=== PATIENT | female | born 1960 | race Caucasian/White ===

== ENCOUNTER → 2016-10-26 | Outpatient (CLI) | payer OTHER ==
[2016-10-26 18:19] LABS: BLOOD UREA NITROGEN 21 mg/dl (7-18); BUN/CREATININE RATIO 21.6 (10-20); CALCIUM 9.2 mg/dl (8.5-10.1); CARBON DIOXIDE 27 mmol/L (21-32); CHLORIDE 103 mmol/L (98-107); CREATININE 0.95 mg/dl (0.60-1.20); GLUCOSE 92 mg/dl (70-99); POTASSIUM 4.2 mmol/L (3.5-5.1); SODIUM 136 mmol/L (136-145)
== END | disposition home or self-care (01) ==
LOC: C.LABPBG 15:04
PROVIDERS: ATTEND Family Medicine
DX: I10 Essential (primary) hypertension (principal); Z11.59 Encounter for screening for other viral diseases

== ENCOUNTER → 2017-09-27 | Outpatient (CLI) | payer OTHER ==
[~2017-09-27] MED LIST: GADAVIST IV PRN
--- NOTE | 2017-09-27 11:37 | DIAGNOSTIC IMAGING REPORT ---
MR ANGIOGRAM OF THE NECK COMBO CLINICAL HISTORY: Arteriosclerotic vascular disease. Headaches and dizziness. COMPARISON STUDY: No priors. TECHNIQUE: Axial 3-D [id number] MR angiography of the neck is performed. Subsequently, following the IV administration of 8 cc of Gadavist. Coronal MR angiogram of the neck was performed to corroborate the findings. 3-D reformats are created and assessed. All measurements were calculated based on NASCET criteria. FINDINGS: Visualized portions of the thoracic aorta are normal in caliber. The aortic arch demonstrates standard 3-vessel anatomy. The subclavian arteries are widely patent bilaterally. The right common carotid artery is widely patent. There is atherosclerotic irregularity in the carotid bulb. The right internal carotid artery is widely patent. Mild stenosis is suggested the origin of the right external carotid artery. The left common carotid artery is widely patent. There is atherosclerotic irregularity seen in the region of the carotid bulb. There is approximate 75% stenosis at the origin of the left internal carotid artery. The remainder of the left internal carotid artery is widely patent. High-grade stenosis is also suggested the origin of the left external carotid artery. The vertebral arteries are widely patent. The vertebral arteries are codominant. The visualized intracranial vessels at the skull base appear patent. IMPRESSION: 1. There is approximately 75% stenosis identified at the origin of the left internal carotid artery. 2. The remainder of the left internal carotid artery is widely patent. 3. There is no significant stenosis identified in the right internal carotid artery. 4. The vertebral arteries are patent. 5. Stenosis is suggested the origin of both the right and left external carotid arteries. Electronically signed by: Fermin Anderson M.D. 09/27/2017 11:35 AM Dictated Date/Time: 09/27/2017 11:24 AM
== END | disposition home or self-care (01) ==
LOC: C.MRI 09:46
PROVIDERS: ATTEND Psychiatry & Neurology Neurology
DX: I65.29 Occlusion and stenosis of unspecified carotid artery (principal); I70.90 Unspecified atherosclerosis

== ENCOUNTER 2017-11-17 05:10 | Inpatient (IN) | payer OTHER ==
[2017-11-01 11:09] VITALS: BMI 32.0
--- NOTE | 2017-11-01 11:43 | PAT Medication Instructions ---
Service Date Nov 01, 2017. Current Home Medication List Aspirin (Aspirin Ec), 81 MG PO QDD Atenolol (Tenormin), 100 MG PO QAM Atorvastatin (Lipitor), 10 MG PO QAM Diazepam (Valium), 2 MG PO UD PRN for prn Flurbiprofen (Flurbiprofen), 2 TABS PO for Pain Hydrocodon/Acetaminophen 5MG/300MG (Vicodin (5MG/300MG)), 1 TAB PO Q4H PRN for Pain Triamterene/Hctz (Triamterene/Hydrochloroth), Unknown Dose PO QAM Medication Instructions For Your Scheduled Surgery -Check with your sugeon for instructions for: Aspirin (Aspirin Ec), 81 MG PO QDD Flurbiprofen (Flurbiprofen), 2 TABS PO for Pain - Hold the following medications the morning of surgery: Triamterene/Hctz (Triamterene/Hydrochloroth), Unknown Dose PO QAM - Take the following medications the morning of surgery with a sip of water: Atenolol (Tenormin), 100 MG PO QAM Atorvastatin (Lipitor), 10 MG PO QAM Diazepam (Valium), 2 MG PO UD PRN for prn (if needed) Hydrocodon/Acetaminophen 5MG/300MG (Vicodin (5MG/300MG)), 1 TAB PO Q4H PRN for Pain (if needed, can be taken up to four hours before surgery) - Take the following medications as scheduled the night before surgery: Diazepam (Valium), 2 MG PO UD PRN for prn (if needed) Hydrocodon/Acetaminophen 5MG/300MG (Vicodin (5MG/300MG)), 1 TAB PO Q4H PRN for Pain (if needed) If you have any questions please call us at [phone] or [phone] or [phone]
[2017-11-01 12:52] LABS: INR 0.9 (0.9-1.1); PTT PATIENT 26.4 SECONDS (21.0-31.0)
[2017-11-01 12:53] LABS: BASO % 0.4 %; BASO ABS # 0.04 K/uL (0-0.2); EOS % 1.5 %; EOS ABS # 0.15 K/uL (0-0.5); HEMATOCRIT 40.1 % (37-47); HEMOGLOBIN 14.2 g/dL (12.0-16.0); IG# 0.03 K/uL (0.00-0.02); LYMPH % 14.4 %; LYMPH ABS # 1.43 K/uL (1.2-3.4); MEAN CORPUSCULAR HEMOGLOBIN 33.6 pg (25-34); MEAN CORPUSCULAR HGB CONC 35.4 g/dl (32-36); MEAN PLATELET VOLUME 9.5 fL (7.4-10.4); MONO % 4.3 %; MONO ABS # 0.43 K/uL (0.11-0.59); NEUT % 79.1 %; NEUT ABS # 7.85 K/uL (1.4-6.5); PLATELET COUNT 184 K/uL (130-400); RED CELL DISTRIBUTION WIDTH CV 12.6 % (11.5-14.5); RED CELL DISTRIBUTION WIDTH SD 43.7 fL (36.4-46.3); WHITE BLOOD COUNT 9.93 K/uL (4.8-10.8)
[2017-11-01 13:51] LABS: CALCIUM 9.6 mg/dl (8.5-10.1); CREATININE 0.94 mg/dl (0.60-1.20)
[~2017-11-17] VITALS: Ht 154.9 cm; Wt 77.1 kg
[~2017-11-17 05:10] MED LIST changes: +ASPI81TA28 PO; +ATEN-175 PO; +ATOR10TA82 PO; +DIAZ2TAB PO; +FLUR50TA PO; -GADAVIST IV PRN; +HYDR-3419 PO; +MXZ/ PO
[2017-11-17 05:47] VITALS: BP 146/90; PULSE 73; TEMP 36.5; O2SAT 97; Ht 154.9 cm; Wt 77.1 kg
--- NOTE | 2017-11-17 05:55 | History and Physical ---
History & Physical Date of Service November 17, 2017. History & Physical CC: Left internal carotid artery stenosis HPI: Ms. Meron Bustamante is a 57-year-old female with past medical history significant for lupus and hypertension and tinnitus, who [facility]. She was being worked up for her tinnitus, but she states it is like locus humming in her left ear continuously when she underwent an MRA of her head, which showed a small microvascular changes. She also then was referred for a carotid duplex, which demonstrated a 70% stenosis and then was sent for an MRA of the neck, which showed a 75-80% stenosis of her left carotid artery. She was then referred to [facility] for further evaluation. Upon evaluation, she states that she has been having issues with the tinnitus for a year, but it has gotten significantly worse. She states that it happens night and day, other times when it is more intense and during those times, she has some associated dizziness. She denies any alleviating factors. She denies any aggravating factors. She does state that she has some weakness in her left extremities and she has significant arthritis bilaterally. She denies any episodes where she was unable to move her arm or legs. She denies any slurred speech, facial droop, or amaurosis. She denies any claudication, rest pain or tissue loss. She does have a ruptured disk in her back and will get neuropathic pain down her left leg with exertion. She says this starts in her low back and hip and radiates down to her toes and is tingling and sharp in nature. She is a smoker and smokes a pack a day. She has been smoking since she was 17 years old. PAST MEDICAL HISTORY: Significant for hypertension, lupus, general anxiety disorder, arthritis, degenerative joint disease, and carpal tunnel. PAST SURGICAL HISTORY: Significant for 2 C-sections and appendectomy. FAMILY HISTORY: Significant for coronary artery disease in her father and multiple siblings. Her father also had stroke. SOCIAL HISTORY: Smokes a pack a day since age 17. Social drinker. Denies any illicit substances. 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 ALLERGIES: ISABELA INHIBITORS, ERYTHROMYCIN, NIFEDIPINE. CURRENT HOME MEDICATIONS: 1. Flurbiprofen 100 mg b.i.d. p.r.n. 2. Percocet 5/325 take 1-2 tablets by mouth q.4-6 hours p.r.n. pain. 3. Diazepam 2 mg take 1 tablet t.i.d. p.r.n. anxiety. 4. Venlafaxine ER 150 mg [place] daily. 5. Atenolol 100 mg [place] daily. 6. Triamterene HCTZ 75/50 mg take 1 tablet daily. 7. Methylprednisone 4 mg daily. PHYSICAL EXAM: Heart rate is 64, blood pressure is 144/82 on the right, 144/82 on the left side, sating 97% on room air. Weight is 79.2 kg. This is a 57-year-old female in no acute distress. Head is normocephalic, atraumatic. Extraocular movements are intact. Neck is supple. Trachea is midline. Heart is regular. She has nonlabored breathing. Her abdomen is soft , nontender. She has a healed Pfannenstiel incision. No hernia. She has palpable bilateral radial, femoral, and DP pulses. She has no ulcers. Her strength is 4/5 in the left, 5/5 in the right. Hand jump roll operator was limited due to arthritis. Sensation is grossly intact bilaterally. Tongue is midline. Cranial nerves 2-12 are grossly intact. She underwent an MRA, which showed high-grade stenosis of the left carotid artery. Imp: Severe left internal carotid artery stenosis Plan: Patient is admitted for a left CEA. I have discussed the risks options and benefits of the procedure with the patient. The patient understands the risks options and benefits and agrees to the procedure.
[2017-11-17] MEDS ORDERED: CEFAZOLIN 1000MG IV PUSH 7.5 ML IV SCH (06:00)
[2017-11-17] MEDS ORDERED: LACTATED RINGER'S 1000ML 1,000 ML IV SCH ×2 (06:00)
[2017-11-17 06:44] LABS: CALCIUM 9.5 mg/dl (8.5-10.1); CREATININE 1.29 mg/dl (0.60-1.20); POTASSIUM 3.2 mmol/L (3.5-5.1)
[2017-11-17] MEDS ORDERED: DEXAMETHASONE SOD INJ 4 MG/ML VIAL ONE (06:47)
[2017-11-17] MEDS ORDERED: NEOSTIGMINE METHYLSULFATE 5 MG/5 ML SYR ONE (06:47)
[2017-11-17] MEDS ORDERED: ONDANSETRON INJ 2 MG/ML 2 ML VIAL ONE (06:47)
[2017-11-17] MEDS ORDERED: PROPOFOL IV EMULSION 10 MG/ML 20 ML VIAL ONE (06:47)
[2017-11-17] MEDS ORDERED: LIDOCAINE HCL 2% 2 ML VIAL (20MG/ML) ONE (06:47)
[2017-11-17] MEDS ORDERED: MIDAZOLAM HCL 1 MG/ML 2ML VIAL ONE (06:47)
[2017-11-17] MEDS ORDERED: GLYCOPYRROLATE INJ 0.2 MG/ML VIAL ONE (06:47)
[2017-11-17] MEDS ORDERED: FENTANYL CITRATE INJ 50 MCG/1 ML 2 ML VIAL ONE ×2 (06:48→10:36)
[2017-11-17] MEDS ORDERED: GELATIN SPONGE SZ 100 ONE (06:56)
[2017-11-17] MEDS ORDERED: CEFAZOLIN SOD 1 GM VIAL ONE (06:56)
[2017-11-17] MEDS ORDERED: BUPIVACAINE/EPINEPHRINE 0.5% MPF 1:200,000 30 ML VIAL ONE (06:56)
[2017-11-17] MEDS ORDERED: LIDOCAINE HCL 1% 20 ML VIAL ONE (06:56)
[2017-11-17] MEDS ORDERED: THROMBIN FOR SOLN 20000 UNIT KIT ONE (06:56)
[2017-11-17] MEDS ORDERED: HEPARIN SOD (PORCINE) 1000 UNIT/ML 10 ML VIAL ONE ×2 (06:57→08:30)
--- NOTE | 2017-11-17 07:04 | History & Physical Bridge Note ---
H&P Re-Evaluation Bridge Note: I have examined the patient, reviewed the History & Physical and in the interval since the performance of the History & Physical I have noted the following changes of clinical significance: No changes noted
[2017-11-17] MEDS ORDERED: PHENYLEPHRINE HCL INJ 10 MG/ML VIAL ONE (08:09)
[2017-11-17] MEDS ORDERED: ALBUTEROL HFA INHALER 8.5 GM INH ONE (08:09)
[2017-11-17] MEDS ORDERED: LARYING-O-JET KIT (LTA) ONE (08:09)
[2017-11-17] MEDS ORDERED: EpHEDrine SULFATE 50MG/5ML SYR ONE (08:09)
--- NOTE | 2017-11-17 09:31 | [facility] Post Operative Brief Note ---
Immediate Operative Summary Operative Date November 17, 2017. Pre-Operative Diagnosis Severe Left Internal Carotid Artery Stenosis Post-Operative Diagnosis Severe Left Internal Carotid Artery Stenosis Procedure(s) Performed Left Internal Carotid Endarterectomy with Patch Surgeon Dr. Miguel Cronin Production Control Manager Surgeon(s) Angie Garza PA-c and Dr. Charlotte Harkins(Fellow) Estimated Blood Loss 125 ml Findings Consistent with Post-Op Diagnosis Specimens A: Left internal Cartoid Plaque Drains None Anesthesia Type General Complication(s) none Disposition Disposition: Recovery Room / PACU
[2017-11-17] MEDS ORDERED: MoRPHine SULFATE 4 MG/ML 1 ML CARP\\VIAL IV PRN (09:45)
[2017-11-17] MEDS ORDERED: EpHEDrine SULFATE INJ 50 MG/ML AMP IV PRN (09:45)
[2017-11-17] MEDS ORDERED: ONDANSETRON INJ 2 MG/ML 2 ML VIAL IV PRN ×2 (09:45)
[2017-11-17] MEDS ORDERED: FENTANYL CITRATE INJ 50 MCG/1 ML 2 ML VIAL IV PRN (09:45)
[2017-11-17] MEDS ORDERED: HYDROmorphone INJ 2 MG/ML SYR/VIAL IV PRN (09:45)
[2017-11-17] MEDS ORDERED: ATROPINE SULFATE 0.1 MG/ML 5ML SYR IV PRN (09:45)
[2017-11-17] MEDS ORDERED: NITROGLYCERIN 5 MG/ML 10 ML VIAL ONE (10:28)
[2017-11-17] MEDS ORDERED: NURSING VERBAL MED ORDER ONE ×3 (10:45→16:00)
--- NOTE | 2017-11-17 11:27 | Anesthesiology Progress Note ---
Anesthesia Post Op Note Date & Time November 17, 2017 at 11:27 Vital Signs Pain Intensity: 2 Vital Signs Past 12 Hours Date Time Temp Pulse Resp B/P (MAP) Pulse Ox O2 Delivery O2 Flow Rate FiO2 11/17/17 11:15 50 16 100/69 (84) 96 Nasal Cannula 2 11/17/17 11:05 36.3 57 12 103/70 97 Nasal Cannula 2 Arterial Line 11/17/17 10:55 50 12 111/65 98 Nasal Cannula 2 105/47 (71) 11/17/17 10:45 52 16 113/72 97 Nasal Cannula 2 111/52 11/17/17 10:35 52 14 116/71 99 Oxymask 10 11/17/17 10:25 54 17 120/71 97 Oxymask 10 122/56 11/17/17 10:15 36.5 62 18 94/62 (70) 95 Oxymask 10 11/17/17 05:47 36.5 73 20 146/90 97 Room Air Notes Mental Status: alert / awake / arousable, participated in evaluation Pt Amnestic to Procedure: Yes Nausea / Vomiting: adequately controlled Pain: adequately controlled Airway Patency, RR, SpO2: stable & adequate BP & HR: stable & adequate Hydration State: stable & adequate Anesthetic Complications: no major complications apparent
[2017-11-17 11:50] VITALS: BP 100/68; PULSE 55; TEMP 36.5; O2SAT 92
--- NOTE | 2017-11-17 11:54 | OPERATIVE REPORT ---
DATE OF OPERATION: 11/17/2017 PREOPERATIVE DIAGNOSIS: Severe left internal carotid artery stenosis. POSTOPERATIVE DIAGNOSIS: Severe left internal carotid artery stenosis. PROCEDURE: Left carotid endarterectomy with patch angioplasty. SURGEON: Dr. Miguel Cronin ASSISTANTS: Dr. Charlotte Harkins and Angie Garza PA-C ESTIMATED BLOOD LOSS: 125 mL. FINDINGS: Consistent with postoperative diagnosis. ASSESSMENT: Left internal carotid plaque. DRAINS: None. ANESTHESIA: General anesthesia plus local. COMPLICATIONS: None. INDICATIONS: Mrs. Meron Bustamante is a 57-year-old woman with a history of hypertension, lupus, anxiety, arthritis, degenerative joint disease, carpal tunnel disease, who developed ringing in her ear. She was evaluated with an MRI which was significant for a 75-80% left carotid stenosis. She was asymptomatic with respect to her carotid disease. Given the significant degree of stenosis, she was recommended to undergo a left carotid endarterectomy. The risks, benefits, and alternatives were discussed with the patient and she consented to the procedure. DESCRIPTION OF PROCEDURE: The patient was taken to the operating room and placed in the supine position. Her left neck and chest were prepped and draped in the usual sterile fashion. A safety timeout was performed and the patient, procedure, and sidedness were correctly identified. An incision was made along the anterior border of the sternocleidomastoid muscle with a 10 blade scalpel. Bovie electrocautery was used to divide the subcutaneous tissues and the platysma. The sternocleidomastoid muscle was identified and retracted laterally. The carotid sheath was entered. The IJ was retracted laterally. The common carotid was identified and dissected circumferentially. We extended our dissection distally and identified the superior thyroid, external carotid, and internal carotid arteries. The hypoglossal was identified. The patient was systemically anticoagulated with 7000 units of intravenous heparin. After several minutes, the internal carotid, common carotid, and external carotid arteries were clamped sequentially. An arteriotomy was made in the common carotid with an 11 blade scalpel. This was extended proximally and distally with [place] scissors. A Doppler shunt was brought onto the field and placed into the internal carotid. This was backbled and then the remaining end was placed into the common carotid. The Doppler machine was turned on and appeared to have a good flow. We then proceeded with our endarterectomy. Following completion of the endarterectomy, the lumen was irrigated with heparinized saline and small bits of plaque were removed. A [place] Acuseal patch was then brought onto the field. This was sewn in place beginning at the internal carotid with a [place] CV6 suture in a running fashion. Prior to completion of the patch, the shunt was removed and all arteries were backbled, forward bled, and the lumen was flushed with heparinized saline. Upon completion of the patch, there were small areas of bleeding from needle holes. Thrombin Gelfoam was applied to overlying the patch and manual pressure was held for several minutes with good hemostasis. The platysma was reapproximated with 3-0 Vicryl in a running fashion. Skin was reapproximated with 4-0 Vicryl in a running subcuticular fashion. Local anesthesia was injected prior to closure. Dermabond skin glue was applied overlying the skin incision. The patient was awakened from general anesthesia and was following commands in all 4 extremities. She tolerated the procedure well and there were no immediate complications. She was transferred to the recovery area in stable condition. Dr. Miguel Cronin was present for the entire procedure. I attest to the content of the Intraoperative Record and any orders documented therein. Any exception s are noted below.
[2017-11-17] MEDS ORDERED: CEFAZOLIN IV 1,000 MG in SYRINGE 0 ML IV SCH (12:00)
[2017-11-17] MEDS ORDERED: EUCERIN CR 120 GM JAR EXT PRN (12:15)
[2017-11-17] MEDS ORDERED: ROCURONIUM BROMIDE 10 MG/ML 5 ML VIAL ONE (12:23)
[2017-11-17] MEDS: OXYCODONE/ACETAMINOPHEN 5-325 TAB PO PRN (15:04)
[2017-11-17 16:00] VITALS: BP 109/73; PULSE 56; TEMP 36.5; O2SAT 92
[2017-11-17] MEDS ORDERED: DIAZEPAM 2MG TAB PO PRN (16:00)
[2017-11-17] MEDS: ASPIRIN 81 MG ECTAB PO SCH (17:29)
[2017-11-17 19:20] VITALS: BP 105/66; PULSE 59; TEMP 36.4; O2SAT 91
[2017-11-17 23:14] VITALS: BP 120/72; PULSE 61; TEMP 36.6; O2SAT 91
[2017-11-17 23:59] VITALS: O2SAT 91
[2017-11-18] VITALS (9 sets, daily range): BP systolic 101–138; BP diastolic 66–82; PULSE 55–62; TEMP 36.4–36.8; O2SAT 92–97
[2017-11-18] MEDS: ATORVASTATIN 10 MG TAB PO SCH (07:39)
[2017-11-18] MEDS: ENOXAPARIN 30 MG/0.3 ML SYR SQ SCH ×2 (07:40→20:58)
[2017-11-18] MEDS: OXYCODONE/ACETAMINOPHEN 5-325 TAB PO PRN ×4 (07:42→23:54)
--- NOTE | 2017-11-18 08:21 | Progress Note ---
Progress Note Date of Service: November 18, 2017. Subjective Only complaint is with swallowing. She can swallow liquids. Solid food seems to stick in back of throat and is able to go down with liquids. Denies choking on food. Objective Vital Signs Vital Signs Past 12 Hours Date Time Temp Pulse Resp B/P (MAP) Pulse Ox O2 Delivery O2 Flow Rate FiO2 11/18/17 04:00 94 Room Air 11/18/17 03:38 36.5 62 18 138/82 (100) 95 Room Air 11/17/17 23:59 91 Room Air 11/17/17 23:14 36.6 61 17 120/72 (88) 91 Room Air Exam VSS Afebrile Awake and alert Incision dry and clean No neuro deficits appreciated. No facial droop Tongue midline Imp: Post left CEA Plan: Will consult speech therapy for a swallowing study. Probable d/c tomorrow.
[2017-11-18] MEDS: ASPIRIN 81 MG ECTAB PO SCH (16:16)
[2017-11-19 04:04] VITALS: BP 109/70; PULSE 63; TEMP 36.6; O2SAT 91
[2017-11-19 06:31] VITALS: BP 123/79; PULSE 57; TEMP 36.7; O2SAT 94
[2017-11-19] MEDS: ATORVASTATIN 10 MG TAB PO SCH (08:20)
[2017-11-19] MEDS: ENOXAPARIN 30 MG/0.3 ML SYR SQ SCH (08:20)
[2017-11-19 10:39] VITALS: BP 99/66; PULSE 55; TEMP 36.4; O2SAT 95
[2017-11-19] MEDS ORDERED: OXYC-57 PO (12:49)
--- NOTE | 2017-11-19 12:58 | Discharge Instructions ---
Discharge Instructions Date of Service November 19, 2017. Admission Reason for Admission: Left Carotid Stenosis Discharge Discharge Diagnosis / Problem: post Left carotid endarterectomy, Left carotid stenosis Discharge Goals Goal(s): Prevent Disease Progression Activity Recommendations Activity Limitations: per Instructions/Follow-up section . Instructions / Follow-Up Instructions / Follow-Up 1. May shower and cleanse surgical area gently, then dry thoroughly. DO NOT SOAK WOUND IN WATER. 2. No driving until pain ceases, approx 1-2 weeks. 3. Other activity as tolerated. 4. Will need an office appt with Dr Cronin or Angie Garza PA-C, in 2 weeks. Call [phone] for appt. Current Hospital Diet Patient's current hospital diet: AHA Diet (Heart Healthy) Discharge Diet Recommended Diet: AHA Diet (Heart Healthy) Procedures Procedures Performed: Left Internal Carotid Endarterectomy with Patch Pending Studies Studies pending at discharge: no Medical Emergencies . Who to Call and When: Medical Emergencies: If at any time you feel your situation is an emergency, please call 911 immediately. . Non-Emergent Contact Non-Emergency issues call your: Primary Care Provider, Surgeon . "Provider Documentation" section prepared by Angie Garza. . [place] Drug Monitoring Program Search Results: patient reviewed within database, no issues identified
--- NOTE | 2017-11-19 13:04 | Progress Note ---
Progress Note Date of Service: November 19, 2017. Subjective 57 yo f with multiple medical problems, POD #2 after L CEA, seen in f/u today. Pt states mild difficulty swallowing regular foods, never liquids, but that is improving. Was eval by speech therapy and d/t improvement in sx, recommended no further eval. Pt admits pain in L neck incision, but states controlled with medications. Objective Vital Signs Vital Signs Past 12 Hours Date Time Temp Pulse Resp B/P (MAP) Pulse Ox O2 Delivery O2 Flow Rate FiO2 11/19/17 12:00 Room Air 11/19/17 10:39 36.4 55 18 99/66 (77) 95 Room Air 11/19/17 08:00 Room Air 11/19/17 06:31 36.7 57 17 123/79 (94) 94 Room Air 11/19/17 04:04 36.6 63 18 109/70 (83) 91 Room Air 11/19/17 04:00 Room Air Exam CONST: A&O x3, NAD, generally healthy appearing female NECK: L neck with + tenderness, minimal edema. Incision C/D/I. CHEST: RRR lungs ctab ABD: soft, nontender, + bs x 4 quad EXT: ASIF NEURO: No focal deficits. ASSESSMENT and PLAN: s/p L CEA L ICAS Pt doing well post op. Ok for d/c home today. Will see in office in 2 weeks.
[2017-11-19 13:16] VITALS: BP 99/66; PULSE 55; TEMP 36.4; O2SAT 95
--- NOTE | 2017-11-19 23:53 | DISCHARGE SUMMARY ---
ADMISSION DIAGNOSIS: Severe left internal carotid artery stenosis. DISCHARGE DIAGNOSES: 1. Status post left internal carotid artery endarterectomy with patch. 2. Severe left internal carotid artery stenosis. DISCHARGE CONDITION: Stable. CONSULTATIONS IN THE HOSPITAL: Included none. PROCEDURES IN THE HOSPITAL: Included her left internal carotid artery endarterectomy with patch, which was performed on 10/18/2017 with an EBL of 125 mL and no significant complications. HISTORY OF PRESENT ILLNESS: Ms. Bustamante is a 57-year-old female who presented to Dr. Cronin's office for evaluation after she was hearing a humming in her left ear, which was evaluated by an ultrasound as well as an MRA of her neck, which had both demonstrated over 80% stenosis. The patient denies any other symptoms at that time including amaurosis, unilateral extremity weakness, numbness or tingling, difficulty speaking or swallowing, sudden onset confusion or other concerns. Due to the severity of her left internal carotid artery stenosis, she was recommended to consider undergoing a left carotid endarterectomy to reduce her risk of CVA. After discussion with Dr. Cronin regarding the procedure, risks, benefits, and alternatives, the patient was agreeable. HOSPITAL COURSE: The patient was admitted after undergoing left carotid endarterectomy with patch. This was performed without significant complications and as I said an EBL of 125 mL. She essentially remained stable, vital signs and labs. She did complain of a sore throat and some difficulty swallowing regular foods. She had no difficulty with liquids, soft foods, or any actual choking on food. She just stated that regular foods such as meat were difficult to get down. The patient was evaluated by speech therapy and found to have no significant deficits. Her symptoms improved on postop day 2 and she was felt to be stable enough for discharge at that time. PHYSICAL EXAMINATION: VITAL SIGNS: Are as follows: Temperature of 36.4, pulse of 55, respiratory rate of 18, blood pressure of 123/79 with a pulse oximetry of 95% on room air. CONSTITUTIONAL: The patient is a generally healthy for age appearing, well-nourished, well-developed middle aged female, in no acute distress. She ambulates without assistance and is active, alert and oriented x4 with normal recent and remote memory. HEAD: Normocephalic and atraumatic. EYES: EOMI. ENMT: Demonstrates no hearing loss, rhinorrhea, or pharyngeal erythema. NECK: Supple, nontender on the right. Her left neck surgical incision is tender with minimal edema. There is no ecchymosis noted. Her trachea is midline. HEART: Demonstrates a regular rate and rhythm. LUNGS: Decreased, but clear bilaterally. EXTREMITIES: Peripheral pulses are full and equal in all extremities unless otherwise noted, specifically they are normal in her carotid, brachial, radial, and femoral pulses. Lower extremity distal pulses are +1. She has brisk capillary refill and no sign of distal ischemia. ABDOMEN: Soft, nontender with normoactive bowel sounds in all 4 quadrants. No guarding or rebound. There is no flank or CVA tenderness. MUSCULOSKELETAL: Demonstrates normal tone and strength for age. NEUROLOGIC: The patient has grossly intact cranial nerves and grossly intact sensation. She has no focal neurological deficits at this time. DIET UPON DISCHARGE: Should be a low-cholesterol AHA diet. MEDICATIONS UPON DISCHARGE: Reconciled on the chart and are as per her discharge instructions. FOLLOWUP: Should be with Dr. Cronin or his PA, Angie Garza within 2 weeks for reevaluation. She was advised to call the office with any other questions or concerns.
== END 2017-11-19 14:23 | disposition home or self-care (01) | DRG 39 ==
LOC: C.ACU 05:10 → C.2T 06:00 → ENRESERV 10:41
PROVIDERS: ADMIT Surgery Vascular Surgery; ATTEND Surgery Vascular Surgery
PROC: 03CL0ZZ Extirpation of Matter from Left Internal Carotid Artery, Open Approach (ICD-10-PCS; principal; 2017-11-17 07:30)
PROC: 03UL0JZ Supplement Left Internal Carotid Artery with Synthetic Substitute, Open Approach (ICD-10-PCS; principal; 2017-11-17 07:30)
DX: I65.22 Occlusion and stenosis of left carotid artery (principal); I10 Essential (primary) hypertension; F41.1 Generalized anxiety disorder; F17.200 Nicotine dependence, unspecified, uncomplicated; Z79.899 Other long term (current) drug therapy; Z79.52 Long term (current) use of systemic steroids; Z82.49 Family history of ischemic heart disease and other diseases of the circulatory system; Z82.3 Family history of stroke